=== PATIENT | male | born 1980 | race Caucasian/White ===

== ENCOUNTER 2017-06-05 14:05 | Emergency (ER) | payer OTHER ==
[~2017-06-05] VITALS: Wt 200.0 kg
--- NOTE | 2017-06-05 16:00 | RADRPT ---
PROCEDURE: XR Chest. CLINICAL INDICATION: Positive TB skin test TECHNIQUE: PA and lateral chest x-ray. COMPARISON: None. FINDINGS: The lungs are clear. The cardiomediastinal silhouette is unremarkable. The osseous structures are u nremarkable. No radiographic evidence of active tuberculosis. IMPRESSION: 1. No acute cardiopulmonary disease. RPTAT: GG .Prasanna Churchill MD, Date Time Electronically viewed and signed by .Prasanna Churchill MD, on 06/05/2017 16:00 .L/
--- NOTE | 2017-06-05 18:04 | ERD ---
ER Documentation Chief Complaint Date/Time DATE: 06/05/17 Chief Complaint Positive TB test HPI The patient is a 36-year-old male who presents to the Emergency Department for evaluation due to positive PPD test. The patient reports that he is currently in the process of starting a new program, and therefore was required to have a tuberculin skin test, which he received on 06/03/2017. The patient returned to the clinic today for reevaluation, and was noted to have a positive PPD test, with 20 mm of induration. Therefore, he was referred to the Emergency Department for further evaluation and chest x-ray. He does note that over the past several days he has been experiencing rhinorrhea, cough, myalgias and night sweats. He admits to subjective fevers, but has not checked his temperature. He denies any hemoptysis or significant weight loss. Denies pleuritic chest pain, shortness of breath, headache, confusion, flank pain, back pain, neck pain. Denies any history of HIV, renal failure, diabetes or immunocompromised state. Denies drug or alcohol abuse. He is not homeless or living in an institution. He is uncertain if he ever had previous infection or prior positive PPD. He is uncertain of her immunization status. 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 ROS All systems reviewed and are negative except as per history of present illness. Medications Home Meds Active Scripts Rifampin* (Rifampin*) 300 Mg Capsule, 600 MG PO DAILY, #30 CAP Prov:DREW CHOWDARY PA-C 06/05/17 Isoniazid* (Isoniazid*) 300 Mg Tablet, 300 MG PO DAILY, #30 TAB Prov:DREW CHOWDARY PA-C 06/05/17 Pyridoxine Hcl* (Pyridoxine Hcl*) 100 Mg Tablet, 100 MG PO DAILY, #30 TAB Prov:DREW CHOWDARY PA-C 06/05/17 Allergies Allergies: Coded Allergies: No Known Allergy (Unverified , 06/05/17) PMhx/Soc Medical and Surgical Hx: pt denies Medical Hx, pt denies Surgical Hx Hx Alcohol Use: No Hx Substance Use: No Hx Tobacco Use: Yes Smoking Status: Current every day smoker Physical Exam Vitals Vital Signs Date Time Temp Pulse Resp B/P Pulse Ox O2 Delivery O2 Flow Rate FiO2 06/05/17 14:10 98.0 83 20 130/87 99 Physical Exam GENERAL: Well-developed, well-nourished, in no acute distress HEENT: Head is normocephalic, atraumatic. No scleral pallor or icterus. Pupils equal, round and reactive to light. Extraocular movements intact. Conjunctiva pink. Moist mucous membranes. Posterior pharynx is erythematous, with no exudates. Uvula is midline. NECK: Supple. No masses, no tenderness, no lymphadenopathy. Trachea midline. No nuchal rigidity. Full range of motion. RESPIRATORY: Lungs are clear to auscultation bilaterally. No rales, rhonchi or wheezing. Equal breath sounds. Normal expiratory effort. CARDIOVASCULAR: Regular rate and rhythm. S1 and S2 normal. GASTROINTESTINAL: Abdomen is soft, nontender, and nondistended. Normal bowel sounds. FLANK: No CVA tenderness. BACK: No midline tenderness. No paraspinal tenderness. EXTREMITIES: No clubbing, cyanosis, or edema. Normal skin perfusion. Full range of motion of both the upper and lower extremities bilaterally. Muscle tone is normal. No focal swelling or erythema. Distal pulses are palpable, 2+ bilaterally. Capillary refill is less than 2 seconds. NEUROLOGIC: The patient is alert, awake, and oriented x 3. No focal neurologic deficits. Gait is observed and normal. There is no ataxia. Motor normal in all extremities. Sensation grossly intact. Speech is normal. INTEGUMENT: Skin is clean, dry and intact. Positive PPD test to left upper extremity, with 20 mm of induration. PSYCHIATRIC: Appropriate; Cooperative. Results 24 hrs Laboratory Tests Test 06/05/17 16:43 HIV (1&2) Antibody NEGATIVE Procedures/MDM DIAGNOSTIC TESTS AND INTERPRETATION: PROCEDURE: XR Chest. CLINICAL INDICATION: Positive TB skin test TECHNIQUE: PA and lateral chest x-ray. COMPARISON: None. FINDINGS: The lungs are clear. The cardiomediastinal silhouette is unremarkable. The osseous structures are unremarkable. No radiographic evidence of active tuberculosis. IMPRESSION: 1. No acute cardiopulmonary disease. .Prasanna Churchill MD, MD Date Time Electronically viewed and signed by .Prasanna Churchill MD, on 06/05/2017 16:00 HIV: Negative. AFB culture/smear: pending. EMERGENCY DEPARTMENT COURSE: The patient was stable throughout ED course. I kept the patient and/or family informed of laboratory and diagnostic imaging results throughout the ED course. The case was reviewed and discussed with ED supervising physician, Dr. Crawford, who agree with the plan of care including labs, imaging and treatment. Dr. Crawford aided in complete management of the patient. Multiple calls placed to infectious disease specialist, but infectious disease physician did not return the calls. Multiple algorithms were consulted. Dr. 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 He recommended that the patient be discharged home with prescriptions for Isoniazid, Pyridoxine, Rifampin - per the algorithm of [employer]. HIV test was negative. AFB smear ordered to be followed. Patient provided a copy of the algorithm used, as well as extensive information regarding each prescribed medication, and possible adverse outcomes/reactions. MEDICAL DECISION MAKING: This is a 36-year-old male presenting to the Emergency Department for evaluation, due to positive PPD test. Chest x-ray was performed, which revealed no acute cardiopulmonary disease. In the setting of a positive PPD with a negative chest x-ray, ED supervising physician recommends discharge home, with treatment for presumed latent TB, and that the patient follow up with PMD as an outpatient. He recommends that the patient be discharged home with prescriptions for Isoniazid, Rifampin, Pyridoxine. Patient presented to the ED with no fever, tachycardia, hypoxia, cachexia, abnormal breath sounds or cervical lymphadenopathy on examination. No recent hemoptysis. No history of HIV , diabetes, renal failure, or immunocompromised state. Chest x-ray with no parenchymal infiltrates, cavitary lesions, nodules, pleural effusion, tracheal deviation, Ghon complex. Suspect that patient's other symptoms (cough, myalgias , etc.) are secondary to upper respiratory infection, viral in etiology. At this time, presentation is not consistent with pneumonia, lung abscess, fungal infection, pulmonary embolus, streptococcal pharyngitis, sepsis. I had an extensive discussion with the patient regarding treatment algorithms, and the medications that will be prescribed. Discussed possible side effects of the medications, including hepatotoxicity, seizures, thrombocytopenia/leukopenia, hemolytic anemia, hemorrhage, DIC, agranulocytosis, renal failure, Alfaro- Trino syndrome, toxic epidermal necrolysis, DRESS syndrome, red/orange body fluids, pancreatitis, optic neuritis, peripheral neuropathy, psychosis. The patient was instructed to follow up with their PCP in the next 24-48 hours to initiate a suitable medication regimen under the care of their PCP as well as to allow their PCP to monitor any drug reactions. The patient was discharged home with prescriptions after they gave informed consent to the new medication. As stated previously, they were also fully informed by myself on the adverse effects and adverse drug interactions in order to provide adequate safeguards to prevent possible adverse reactions to medications. At this time the patient is in stable condition, with no signs of respiratory compromise, and therefore he will be discharged home with strict return precautions for signs of deteriorating or worsening condition. I shared my medical decision making and plan with the patient, and he verbally understands and agrees with [facility] plan for further observation and care as an outpatient. At the time of discharge, all questions were answered. AFB smear ordered, and in process. Departure Diagnosis: Primary Impression: Positive PPD Condition: Stable Patient Instructions: Medication for Tuberculosis, Tuberculosis (TB), Tuberculosis Testing Additional Instructions: Call your primary care doctor TOMORROW for an appointment during the next 1-2 days.See the doctor sooner or return here if your condition worsens before your appointment time. DREW CHOWDARY PA-C Jun 05, 2017 18:04
[2017-06-05] MEDS ORDERED: PYRI100T4 PO (18:05)
--- NOTE | 2017-06-05 18:05 | EN ---
Date/Time of Note Date/Time of Note DATE: 06/05/17 TIME: 18:03 ER Progress Note Is very involved in this case with the PA. Patient has a positive PPD but negative chest x-ray. Calls placed infectious disease but infectious disease is not on-call and did not return the calls. Consulted multiple algorithms, clearest of which was in the [employer] [employer] which is in this case with a negative chest x-ray and positive PPD you do treat for latent TB. Safety regarding to start isoniazid and rifampin though I have ordered a AFB smear to be followed. Lab says this takes 5 days to result. Patient is instructed to return emergency room for any worsening of symptoms. GRACIE PINTO DO Jun 05, 2017 18:05
[2017-06-05] MEDS ORDERED: ISON300T72 PO (18:06)
[2017-06-05] MEDS ORDERED: RIFA300C3 PO (18:07)
== END 2017-06-05 18:36 | disposition home or self-care (01) ==
LOC: FTE 14:05
DX: R76.11 Nonspecific reaction to tuberculin skin test without active tuberculosis (principal); F17.210 Nicotine dependence, cigarettes, uncomplicated
CPT/HCPCS: 71020; 86703; Z7502